=== PATIENT | male | born 1995 | race Caucasian/White ===

== ENCOUNTER 2016-07-14 16:47 | Observation (INO) | payer OTHER ==
[~2016-07-14] VITALS: Ht 165.1 cm; Wt 56.7 kg
== END 2016-07-15 11:28 | disposition home or self-care (01) ==
LOC: ER 16:47 → SDC 19:26 → MED 21:53
PROVIDERS: ADMIT Internal Medicine
DX: S82.842A Displaced bimalleolar fracture of left lower leg, initial encounter for closed fracture (principal); F17.210 Nicotine dependence, cigarettes, uncomplicated; Z87.898 Personal history of other specified conditions; Z98.890 Other specified postprocedural states; W11.XXXA Fall on and from ladder, initial encounter
CPT/HCPCS: 96374; 96375; 96376; 97161-GP; G0378; J1885; J2704; J2765